=== PATIENT | male | born 1940 | race Caucasian/White ===

== ENCOUNTER → 2017-10-04 13:37 | Outpatient (REF) | payer MEDICARE, OTHER, SELFPAY | LOC: LAB 13:37 | PROVIDERS: Visit Provider Internal Medicine ==

== ENCOUNTER → 2017-10-18 08:05 | Outpatient (REF) | payer MEDICARE, OTHER, SELFPAY ==
[2017-10-18 09:11] LABS: Add Manual Diff / Slide Review NO; Basophils Percent Auto 0.6 % (0-2); Eosinophils Percent Auto 4.3 % (2-4); Hematocrit 30.1 % (41-53); Hemoglobin 10.4 g/dL (13.5-17.5); Lymphocytes Percent Auto 25.4 % (25-40); Mean Corpuscular HGB Conc 34.5 % (30-36); Mean Corpuscular Volume 92.7 fL (80-100); Monocytes Percent Auto 9.2 % (3-14); Neutrophils Absolute Auto 4000 /uL (3000-5900); Neutrophils Percent Auto 60.5 % (50-75); Platelet Count 200 X10^3/uL (150-400); Red Blood Cell Count 3.25 X10^6/uL (4.5-5.9); White Blood Cell Count 6.6 X10^3/uL (4.5-11.0)
== END ==
LOC: LAB 08:05
PROVIDERS: Visit Provider Psychiatry & Neurology Psychiatry
DX: G31.83 Neurocognitive disorder with Lewy bodies (principal); G20 Parkinson's disease
CPT/HCPCS: 36415; 85025

== ENCOUNTER → 2017-10-25 08:30 | Outpatient (REF) | payer MEDICARE, OTHER, SELFPAY ==
[2017-10-25 09:10] LABS: Add Manual Diff / Slide Review NO; Basophils Percent Auto 0.7 % (0-2); Eosinophils Percent Auto 3.3 % (2-4); Hematocrit 32.4 % (41-53); Lymphocytes Percent Auto 21.5 % (25-40); Mean Corpuscular HGB Conc 33.8 % (30-36); Mean Corpuscular Hemoglobin 31.3 PG (26-34); Mean Corpuscular Volume 92.5 fL (80-100); Monocytes Percent Auto 9.7 % (3-14); Neutrophils Absolute Auto 5200 /uL (3000-5900); Neutrophils Percent Auto 64.8 % (50-75); Platelet Count 221 X10^3/uL (150-400); Red Cell Distribution Width 13.1 % (11.6-14.8)
== END ==
LOC: LAB 08:30
PROVIDERS: Visit Provider Psychiatry & Neurology Psychiatry
DX: G31.83 Neurocognitive disorder with Lewy bodies (principal); F02.80 Dementia in other diseases classified elsewhere, unspecified severity, without behavioral disturbance, psychotic disturbance, mood disturbance, and anxiety; G20 Parkinson's disease
CPT/HCPCS: 36415; 85025

== ENCOUNTER → 2017-11-01 08:33 | Outpatient (REF) | payer MEDICARE, OTHER, SELFPAY ==
[2017-11-01 10:55] LABS: Add Manual Diff / Slide Review NO; Basophils Percent Auto 0.8 % (0-2); Eosinophils Percent Auto 4.2 % (2-4); Hemoglobin 11.7 g/dL (13.5-17.5); Lymphocytes Percent Auto 30.4 % (25-40); Mean Corpuscular HGB Conc 34.3 % (30-36); Mean Corpuscular Hemoglobin 31.7 PG (26-34); Mean Corpuscular Volume 92.4 fL (80-100); Monocytes Percent Auto 8.7 % (3-14); Neutrophils Absolute Auto 4000 /uL (3000-5900); Neutrophils Percent Auto 55.9 % (50-75); Platelet Count 219 X10^3/uL (150-400); Red Blood Cell Count 3.68 X10^6/uL (4.5-5.9); Red Cell Distribution Width 13.3 % (11.6-14.8); White Blood Cell Count 7.1 X10^3/uL (4.5-11.0)
== END ==
LOC: LAB 08:33
PROVIDERS: Visit Provider Psychiatry & Neurology Psychiatry
DX: G31.83 Neurocognitive disorder with Lewy bodies (principal); F02.80 Dementia in other diseases classified elsewhere, unspecified severity, without behavioral disturbance, psychotic disturbance, mood disturbance, and anxiety; G20 Parkinson's disease
CPT/HCPCS: 36415; 85025

== ENCOUNTER → 2017-11-08 07:44 | Outpatient (REF) | payer MEDICARE, OTHER, SELFPAY ==
[2017-11-08 08:43] LABS: Add Manual Diff / Slide Review NO; Basophils Percent Auto 0.7 % (0-2); Eosinophils Percent Auto 5.4 % (2-4); Hematocrit 29.8 % (41-53); Hemoglobin 10.1 g/dL (13.5-17.5); Lymphocytes Percent Auto 28.6 % (25-40); Mean Corpuscular HGB Conc 33.8 % (30-36); Mean Corpuscular Hemoglobin 31.2 PG (26-34); Mean Corpuscular Volume 92.2 fL (80-100); Monocytes Percent Auto 9.7 % (3-14); Neutrophils Absolute Auto 4100 /uL (3000-5900); Neutrophils Percent Auto 55.6 % (50-75); Platelet Count 194 X10^3/uL (150-400); Red Blood Cell Count 3.23 X10^6/uL (4.5-5.9); Red Cell Distribution Width 13.6 % (11.6-14.8); White Blood Cell Count 7.4 X10^3/uL (4.5-11.0)
== END ==
LOC: LAB 07:44
PROVIDERS: Visit Provider Psychiatry & Neurology Psychiatry
DX: G31.83 Neurocognitive disorder with Lewy bodies (principal); F02.80 Dementia in other diseases classified elsewhere, unspecified severity, without behavioral disturbance, psychotic disturbance, mood disturbance, and anxiety
CPT/HCPCS: 36415; 85025

== ENCOUNTER → 2017-11-22 09:10 | Outpatient (REF) | payer MEDICARE, OTHER, SELFPAY ==
[2017-11-22 09:20] LABS: Add Manual Diff / Slide Review NO; Basophils Percent Auto 0.6 % (0-2); Eosinophils Percent Auto 4.9 % (2-4); Hematocrit 31.8 % (36-46); Hemoglobin 10.9 g/dL (12.0-16.0); Lymphocytes Percent Auto 28.2 % (25-40); Mean Corpuscular HGB Conc 34.3 % (30-36); Mean Corpuscular Hemoglobin 31.3 PG (26-34); Mean Corpuscular Volume 91.2 fL (80-100); Monocytes Percent Auto 8.9 % (3-14); Neutrophils Absolute Auto 3900 /uL (3000-5900); Neutrophils Percent Auto 57.4 % (50-75); Platelet Count 193 X10^3/uL (150-400); Red Blood Cell Count 3.49 X10^6/uL (4.0-5.2); Red Cell Distribution Width 13.6 % (11.6-14.8); White Blood Cell Count 6.8 X10^3/uL (4.5-11.0)
== END ==
LOC: LAB 09:10
PROVIDERS: Visit Provider Psychiatry & Neurology Psychiatry
DX: G31.83 Neurocognitive disorder with Lewy bodies (principal); F02.80 Dementia in other diseases classified elsewhere, unspecified severity, without behavioral disturbance, psychotic disturbance, mood disturbance, and anxiety
CPT/HCPCS: 36415; 85025

== ENCOUNTER 2017-11-26 09:05 | Emergency (ER) | payer MEDICARE, OTHER, SELFPAY ==
--- NOTE | 2017-11-26 09:13 | ED.NEUROSD ---
HPI - Neuro Symptoms/Deficit General Chief Complaint: Neuro Symptoms/Deficit Stated Complaint: Possible Stroke Time Seen by Provider: 11/26/17 09:12 Source: family and EMS Mode of arrival: EMS Limitations: altered mental status History of Present Illness HPI Narrative: 77-year-old male arrived as a code stroke for concerns of altered mental status. It was reported that the patient has dementia and Lewy body dementia. Reported by EMS that the patient had breakfast this morning is normal but then [facility] the [facility] they found him after breakfast in his room on his knees and unresponsive. No other history was available. Related Data Home Medications Medication Instructions Recorded Confirmed allopurinol 300 mg PO QDAY #0 12/07/12 metformin [Glucophage] 1.5 dose PO BID #0 12/07/12 tamsulosin [Flomax] 0.4 mg PO QDAY #0 12/07/12 glipizide 5 mg PO QDAY #0 11/26/16 acetaminophen 650 mg PO Q6HP PRN #0 05/09/17 fluticasone [Flonase Allergy 1 spray INTRANASAL BID #0 05/09/17 Relief] hydroxyzine HCl 10 mg PO QIDP #0 05/09/17 lorazepam 0.5 mg PO QID PRN #0 06/18/17 psyllium husk [Metamucil] 1 cap TID #0 07/29/17 tamsulosin [Flomax] 0.8 mg PO QDAY #0 07/29/17 vitamin B complex [B 1 tab PO QDAY #0 07/29/17 Complex-Vitamin B12] vitamin E 400 unit PO QDAY #0 07/29/17 Previous Rx's Medication Instructions Recorded vitamin E 400 unit PO QDAY #30 cap 07/05/16 vitamin B complex [B 1 tab PO QDAY #30 tab 07/12/16 Complex-Vitamin B12] bupropion HCl [Wellbutrin XL] 150 mg PO QDAY #30 tab 01/27/17 oxycodone-acetaminophen [Percocet] 1 - 2 tab PO Q4HP PRN #12 tab 05/10/17 acetaminophen-codeine 1 tab PO Q8H PRN #15 tab 06/19/17 clozapine 12.5 mg disintegrating 12.5 mg PO HS #30 tab 10/17/17 tablet Allergies Allergy/AdvReac Type Severity Reaction Status Date / Time morphine [MORPHINE] Allergy Severe Unverified 09/13/17 12:54 hydrocodone [HYDROCODONE] Allergy Mild DIZZY/ROOM Unverified 09/13/17 12:54 SPINNING Review of Systems Review of Systems unobtainable due to mental status [facility] Comment: Reported history of dementia Exam Initial Vital Signs Initial Vital Signs: Vital Signs Temperature 97.7 F 11/26/17 09:26 Pulse Rate 55 L 11/26/17 09:26 Respiratory Rate 24 11/26/17 09:26 Blood Pressure 112/68 11/26/17 09:26 Pulse Oximetry 98 11/26/17 09:26 Const General: comfortable, well developed, well groomed and No acute distress Orientation: not alert, not awake and not oriented x3 HENMT Head: normal to inspection, normocephalic and atraumatic Eyes Other: Pupils 2 mm equal bilateral Patient resisted me opening is upper eyelids bilaterally Resp Effort & Inspection: normal respiratory effort Auscultation: clear to auscultation bilaterally Cardio Rate: regular rate Rhythm: regular rhythm Pulses: radial pulses present GI Inspection: non-distended Palpation: soft Skin Lesions: no lesions Neuro Other: Patient did not move his extremities upon command or spontaneously Did not follow any commands Did not open his eyes Did not withdrawal to stimulation or sternal rub Did resist me opening his bilateral upper eyelids Extrem General: normal to inspection MDM - Neuro Symptoms/Deficit Medical Records Attestation: I reviewed the patient's medical records. Lab Data Attestation: I reviewed the patient's lab results. Result diagrams: 11/26/17 09:20 11/26/17 09:20 Lab Results 11/26/17 11/26/17 11/26/17 Range/Units 09:20 09:20 09:20 WBC 6.8 (4.5-11.0) X10^3/uL RBC 3.27 L (4.5-5.9) X10^6/uL Hgb 10.3 L (13.5-17.5) g/dL Hct 30.1 L (41-53) % MCV 92.0 (80-100) fL MCH 31.6 (26-34) PG MCHC 34.3 (30-36) % RDW 13.8 (11.6-14.8) % Plt Count 178 (150-400) X10^3/uL Neut % (Auto) 61.6 (50-75) % Lymph % (Auto) 23.4 L (25-40) % [place]ardo % (Auto) 11.2 (3-14) % Eos % (Auto) 3.1 (2-4) % Baso % (Auto) 0.7 (0-2) % Neut # (Auto) 4200 (8027-7551) /uL PT 12.0 (10.1-12.7) SECONDS INR 1.1 (0.9-1.3) APTT 23 L (26.4-36.2) SECONDS Sodium (137-145) mmol/L Potassium (3.4-5.1) mmol/L Chloride (98-107) mmol/L Carbon Dioxide (22-32) mmol/L BUN (9-20) mg/dL Creatinine (0.66-1.25) mg/dL Estimated GFR (>60) mL/min BUN/Creatinine Ratio (6-22) Glucose (80-110) mg/dL Lactate (0.7-2.1) mmol/L Calcium (8.4-10.2) mg/dL Total Bilirubin (0.2-1.3) mg/dL AST (17-59) IU/L ALT (21-72) IU/L Alkaline Phosphatase (38-126) U/L Ammonia (9-30) umol/L Troponin I (0.01-0.034) ng/mL B-Natriuretic Peptide < 100.0 (<100) Total Protein (6.3-8.2) g/dL Albumin (3.5-5.0) g/dL Globulin (1.7-4.1) g/dL Albumin/Globulin Ratio (1.0-2.8) Lipase (23-300) U/L 11/26/17 11/26/17 11/26/17 Range/Units 09:20 09:40 09:40 WBC (4.5-11.0) X10^3/uL RBC (4.5-5.9) X10^6/uL Hgb (13.5-17.5) g/dL Hct (41-53) % MCV (80-100) fL MCH (26-34) PG MCHC (30-36) % RDW (11.6-14.8) % Plt Count (150-400) X10^3/uL Neut % (Auto) (50-75) % Lymph % (Auto) (25-40) % [place]ardo % (Auto) (3-14) % Eos % (Auto) (2-4) % Baso % (Auto) (0-2) % Neut # (Auto) (5796-1268) /uL PT (10.1-12.7) SECONDS INR (0.9-1.3) APTT (26.4-36.2) SECONDS Sodium 135 L (137-145) mmol/L Potassium 4.2 (3.4-5.1) mmol/L Chloride 100 (98-107) mmol/L Carbon Dioxide 26 (22-32) mmol/L BUN 26 H (9-20) mg/dL Creatinine 1.50 H (0.66-1.25) mg/dL Estimated GFR 45.5 L (>60) mL/min BUN/Creatinine Ratio 17.3 (6-22) Glucose 162 H (80-110) mg/dL Lactate 1.0 (0.7-2.1) mmol/L Calcium 8.9 (8.4-10.2) mg/dL Total Bilirubin 0.6 (0.2-1.3) mg/dL AST 14 L (17-59) IU/L ALT 23 (21-72) IU/L Alkaline Phosphatase 58 (38-126) U/L Ammonia < 9.0 L (9-30) umol/L Troponin I < 0.012 (0.01-0.034) ng/mL B-Natriuretic Peptide (<100) Total Protein 6.1 L (6.3-8.2) g/dL Albumin 3.4 L (3.5-5.0) g/dL Globulin 2.7 (1.7-4.1) g/dL Albumin/Globulin Ratio 1.3 (1.0-2.8) Lipase 100 (23-300) U/L Imaging Data CT scan - head: Radiologist's impression: PROCEDURE: CT HEAD/BRAIN WO CON INDICATIONS: Possible stroke TECHNIQUE: Noncontrast 4.5 mm thick angled axial sections acquired from the foramen magnum to the vertex, with coronal and sagittal reformats. For radiation dose reduction, the following was used: automated exposure control, adjustment of mA and/or kV according to patient size. COMPARISON: [facility], CT, CT ANGIO HEAD AND NECK, 11/26/2017, 8:56. [facility], CT, HEAD WITHOUT CONTRAST, 08/20/2017, 13:28. FINDINGS: Image quality: Excellent. CSF spaces: Basal cisterns are patent. No extra-axial fluid collections. The ventricles are symmetric in size and shape. Brain: No intracranial bleeds or masses. There is cerebral volume loss for age, with resultant ventricular and sulcal prominence. There are periventricular and deep white matter chronic small vessel ischemic changes. There is intracranial internal carotid artery atherosclerosis. Skull and face: Calvarium and visualized facial bones appear intact, without suspicious lesions. Sinuses: Visualized sinuses and mastoids are clear. IMPRESSION: 1. No acute intracranial abnormalities. 2. Cerebral volume loss and chronic microvascular ischemic changes. The result was discussed with Dr. Pelaez prior to dictation. Dictated by: Krista Sandoval M.D. on 11/26/2017 at 9:40 Approved by: Krista Sandoval M.D. on 11/26/2017 at 9:46 CTA head and neck: Radiologist's impression: PROCEDURE: CT ANGIO HEAD AND NECK INDICATIONS: Possible stroke TECHNIQUE: Pre-contrast 4.5 mm thick sections acquired from the foramen magnum to the vertex. After the administration of intravenous contrast, 1 mm thick sections acquired from the aortic arch through the [place] of Lr. Post-contrast 4.5 mm thick sections then re-acquired from the foramen magnum to the vertex. 3-dimensional cfnfzji-cyhbukjak-ugzfxqxmyc (MIP) and/or volume rendering reformats were acquired of the central intracranial vasculature and neck separately. COMPARISON: [facility], , STROKE PROTOCOL, 11/27/2016, 7:34. [facility], , STROKE PROTOCOL, 05/22/2014, 13:51. FINDINGS: Image quality: Excellent. BRAIN: CSF spaces: Ventricles are normal in size and shape. Basal cisterns are patent. No extra-axial fluid collections. Brain: No midline shift. No intracranial bleeds or masses. Díaz-white matter interface appears intact. Skull and face: Calvarium and facial bones appear intact, without suspicious lesions. Orbits appear normal. Sinuses: Sinuses and mastoids are clear. HEAD CT ANGIOGRAPHY: Anterior circulation: Intracranial internal carotid arteries are normal in size and flow. The flow within the paired anterior cerebral arteries is normal and symmetric. The flow within the middle cerebral arteries is normal and symmetric. The anterior communicating artery is seen. No aneurysms are seen. Posterior circulation: Visualized portions of the vertebral arteries demonstrate normal caliber, and join to form a normal appearing basilar artery. Flow within the posterior cerebral arteries is normal and symmetric. No aneurysms are seen. NECK CT ANGIOGRAPHY: Carotid system: The great vessels demonstrate a conventional anatomy as they arise from the aortic arch. The origins of the common carotid arteries appear patent. The common carotid arteries demonstrate normal caliber and courses. The bifurcation regions are both widely patent. The internal carotid arteries demonstrate normal calibers and courses. There is plzjgzmq-xd-jela-grade stenosis at the right subclavian artery origin. Posterior circulation: Dominant left vertebral artery. The origins of the vertebral arteries both appear widely patent. The more superior extracranial portions of both vertebral arteries also demonstrate normal courses and calibers. They join to form a normal appearing basilar artery. Soft tissues: Visualized neck soft tissues demonstrate no suspicious abnormalities. Small thyroid nodules present. There is a slightly enlarged right hilar lymph node measuring 1.5 cm. Bones: No suspicious bony lesions. Visualized cervical spine appears normally aligned. IMPRESSION: 1. No high-grade stenosis or occlusion in anterior or posterior circulations. 2. No high-grade stenosis or occlusion in cervical carotid arteries or vertebral arteries. 3. Kftqdivc-ik-mwnz-grade stenosis at the right subclavian artery origin. 4. Mildly enlarged right hilar lymph node. This finding is nonspecific and may be secondary to infectious, inflammatory or neoplastic etiology. Recommend clinical correlation and follow up. Any quantitative measurements of stenosis were performed using NASCET criteria. Dictated by: Krista Sandoval M.D. on 11/26/2017 at 9:51 Approved by: Krista Sandoval M.D. on 11/26/2017 at 10:00 ECG Data Attestation: I personally reviewed and interpreted this ECG as follows: Prior ECG tracings: not available for review Interpretation: Sinus bradycardia Ventricular rate of 59 Normal axis Normal intervals Normal QRS Normal QTC No ST T wave changes MDM Narrative Medical decision making narrative: Head CT shows no acute pathology CTA of the head neck shows no acute vascular compromise. I feel secondary to his physical exam that is CVA is unlikely. His pdfwjw-qg-xdk did eventually arrive here in the emergency department and the patient did respond to her. There was also. The time where the patient asked the nursing staff where he was. Upon my review evaluation patient did squeeze both of his hands equally to command did wiggle his toes equally. I had a long discussion with the patient is sister in all who told me that he has episodes like this where he becomes more ?unresponsive ?and then after approximately an hour to he improves. I was able to talk with his ex over the phone who was the power of developmental behavioral physician according to the patient's nnkoct-dv-zff who told me that his episode today is a common occurrence for him. Labs are unremarkable. Patient did seem to be returning to his baseline per his wmqqpv-dc-jvj all. Will hold off further workup for now. Patient was [facility] to the [facility] with return precautions given to nursing staff. Discharge Plan Departure Patient Disposition: Home, Self-Care Clinical Impression: Acute alteration in mental status, Dementia, Diabetes Discharge Date/Time: 11/26/17 10:43 Interventions: ED Discharge Assessment Last Done: 11/26/17 10:41 Instructions: How to Prevent Falls Activity Restrictions/Additional Instructions: Recommend continuing all medications as directed. Call the primary care doctor for a follow-up this week. Return to the emergency department for any new or worsening symptoms Prescriptions: No Action allopurinol 300 MG tablet 300 mg PO QDAY Qty: 0 RF: 0 metformin [Glucophage] 500 MG tablet 1.5 dose PO BID Qty: 0 RF: 0 tamsulosin [Flomax] 0.4 MG capsule,extended release 24hr 0.4 mg PO QDAY Qty: 0 RF: 0 vitamin E 400 UNIT capsule 400 unit PO QDAY Qty: 30 RF: 5 vitamin B complex [B Complex-Vitamin B12] 1 EACH tablet 1 tab PO QDAY Qty: 30 RF: 5 glipizide 5 MG tablet 5 mg PO QDAY Qty: 0 RF: 0 bupropion HCl [Wellbutrin XL] 150 MG tablet extended release 24 hr 150 mg PO QDAY Qty: 30 RF: 2 fluticasone [Flonase Allergy Relief] 9.9 ML spray,suspension 1 spray Intranasal BID Qty: 0 RF: 0 acetaminophen 325 MG tablet 650 mg PO Q6HP PRNQty: 0 RF: 0 hydroxyzine HCl 10 MG tablet 10 mg PO QIDP Qty: 0 RF: 0 oxycodone-acetaminophen [Percocet] 5 MG/325 MG tablet 1 - 2 tab PO Q4HP PRNQty: 12 RF: 0 lorazepam 0.5 MG tablet 0.5 mg PO QID PRNQty: 0 RF: 0 acetaminophen-codeine 30 MG/300 MG tablet 1 tab PO Q8H PRNQty: 15 RF: 0 psyllium husk [Metamucil] 0.52 GM capsule 1 cap TID Qty: 0 RF: 0 tamsulosin [Flomax] 0.4 MG capsule,extended release 24hr 0.8 mg PO QDAY Qty: 0 RF: 0 vitamin E 100 UNIT capsule 400 unit PO QDAY Qty: 0 RF: 0 vitamin B complex [B Complex-Vitamin B12] 1 EACH tablet 1 tab PO QDAY Qty: 0 RF: 0 clozapine 12.5 mg tablet,disintegrating 12.5 mg PO HS Qty: 30 RF: 3
[2017-11-26 09:26] VITALS: BP 112/68; PULSE 55; PULSE 63; RESP 12; RESP 24; TEMP 36.5; O2SAT 98
[2017-11-26 09:32] LABS: Add Manual Diff / Slide Review NO; Basophils Percent Auto 0.7 % (0-2); Eosinophils Percent Auto 3.1 % (2-4); Hematocrit 30.1 % (41-53); Hemoglobin 10.3 g/dL (13.5-17.5); Lymphocytes Percent Auto 23.4 % (25-40); Mean Corpuscular HGB Conc 34.3 % (30-36); Mean Corpuscular Hemoglobin 31.6 PG (26-34); Monocytes Percent Auto 11.2 % (3-14); Neutrophils Absolute Auto 4200 /uL (3000-5900); Neutrophils Percent Auto 61.6 % (50-75); Platelet Count 178 X10^3/uL (150-400); Red Blood Cell Count 3.27 X10^6/uL (4.5-5.9); Red Cell Distribution Width 13.8 % (11.6-14.8); White Blood Cell Count 6.8 X10^3/uL (4.5-11.0)
[2017-11-26 09:37] LABS: INR 1.1 (0.9-1.3)
[2017-11-26 09:39] LABS: PTT Partial Thromboplastin Tim 23 SECONDS (26.4-36.2)
[2017-11-26 09:40] LABS: Alanine Aminotransferase 23 IU/L (21-72); Albumin 3.4 g/dL (3.5-5.0); Albumin Globulin Ratio 1.3 (1.0-2.8); Alkaline Phosphatase 58 U/L (38-126); Aspartate Aminotransferase 14 IU/L (17-59); BUN Creatinine Ratio 17.3 (6-22); Bilirubin Total 0.6 mg/dL (0.2-1.3); Blood Urea Nitrogen 26 mg/dL (9-20); Calcium 8.9 mg/dL (8.4-10.2); Carbon Dioxide 26 mmol/L (22-32); Chloride 100 mmol/L (98-107); Estimated Glomerular Filt Rate 45.5 mL/min (>60); Globulin 2.7 g/dL (1.7-4.1); Glucose 162 mg/dL (80-110); HEMOLYSIS 18 (0-50); Lipase 100 U/L (23-300); Potassium 4.2 mmol/L (3.4-5.1); Sodium 135 mmol/L (137-145); Total Protein 6.1 g/dL (6.3-8.2)
[2017-11-26 09:48] LABS: B Type Natriuretic Peptide < 100.0 (<100)
[2017-11-26 09:54] LABS: Ammonia (NH3) < 9.0 umol/L (9-30)
[2017-11-26 09:56] LABS: Troponin I < 0.012 ng/mL (0.01-0.034)
[2017-11-26 10:04] VITALS: BP 110/64; PULSE 54; RESP 14; O2SAT 98
[2017-11-26 10:41] VITALS: BP 105/70; PULSE 53; RESP 14; O2SAT 99
--- NOTE | 2017-11-26 10:50 | PC.NURSE ---
Per DPOA, PT has done this (unresponsive episode) before. Requests we send pt back to SNF.
== END 2017-11-26 10:43 | disposition home or self-care (01) ==
LOC: ED 10:31
PROVIDERS: Emergency Provider Emergency Medicine
DX: R41.82 Altered mental status, unspecified (principal); F03.90 Unspecified dementia, unspecified severity, without behavioral disturbance, psychotic disturbance, mood disturbance, and anxiety; E11.9 Type 2 diabetes mellitus without complications
CPT/HCPCS: 36415; 70450; 70496; 70498; 80053; 82140; 82962; 83605; 83690; 83880; 84484; 85025; 85610; 85730; 93005; 93041; 99283; 99285; 99291; Q9967

== ENCOUNTER 2017-11-28 21:39 | Observation (INO) | payer MEDICARE, OTHER, SELFPAY ==
[2017-11-28 21:45] VITALS: BP 117/76; PULSE 58; RESP 13; TEMP 36.9; O2SAT 99; BMI 21.9
--- NOTE | 2017-11-28 21:48 | DI.CT.S_ITS ---
PROCEDURE: CT CERVICAL SPINE WO CON INDICATIONS: Fall with head injury. Poor historian regarding neck pain. TECHNIQUE: Noncontrast 3 mm thick sections acquired from the skull base to the T4 level. Sagittal and coronal reformats were then constructed. For radiation dose reduction, the following was used: automated exposure control, adjustment of mA and/or kV according to patient size. COMPARISON: [facility], CERVICAL SPINE 2 OR 3 VIEWS, 03/24/2009, 10:07. FINDINGS: Image quality: Excellent. Bones: No fractures or dislocations. There is severe degenerative disc disease at C5-C6 and moderate degenerative disc disease at C6-C7. Scattered mild bilateral facet arthropathy in cervical spine. Visualized superior ribs are intact. Soft tissues: Prevertebral soft tissues are normal in thickness. No paravertebral hematomas. No apical pneumothoraces. Surgical and is enlarged and demonstrates heterogeneous attenuation. Small polyp or mucosal retention cyst in the left maxillary sinus. IMPRESSION: 1. No fractures. 2. Degenerative changes noted in cervical spine. 3. Small polyp or mucus retention cyst in the left maxillary sinus. 4. Enlarged thyroid with heterogeneous attenuation. Please correlate with thyroid function tests. If clinically indicated, thyroid ultrasound may be obtained for followup. 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 Dictated by: Krista Sandoval M.D. on 11/29/2017 at 7:09 Approved by: Krista Sandoval M.D. on 11/29/2017 at 7:14
--- NOTE | 2017-11-28 21:48 | DI.CT.S_ITS ---
PROCEDURE: CT HEAD/BRAIN WO CON INDICATIONS: Fall. Occipital head injury. TECHNIQUE: Noncontrast 4.5 mm thick angled axial sections acquired from the foramen magnum to the vertex, with coronal and sagittal reformats. For radiation dose reduction, the following was used: automated exposure control, adjustment of mA and/or kV according to patient size. COMPARISON: [facility], CT, HEAD WITHOUT CONTRAST, 08/20/2017, 13:28. [facility], CT, CT HEAD/BRAIN WO CON, 11/26/2017, 8:56. FINDINGS: Image quality: Excellent. CSF spaces: Basal cisterns are patent. No extra-axial fluid collections. The ventricles are symmetric in size and shape. Brain: No intracranial bleeds or masses. There is cerebral volume loss for age, with resultant ventricular and sulcal prominence. There are periventricular and deep white matter chronic small vessel ischemic changes. There is intracranial internal carotid artery atherosclerosis. Skull and face: Calvarium and visualized facial bones appear intact, without suspicious lesions. Sinuses: Visualized sinuses and mastoids are clear. IMPRESSION: 1. No acute intracranial abnormalities. 2. Cerebral volume loss and chronic microvascular ischemic changes. 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 Dictated by: Krista Sandoval M.D. on 11/29/2017 at 7:07 Approved by: Krista Sandoval M.D. on 11/29/2017 at 7:08
--- NOTE | 2017-11-28 21:52 | ED_ITS ---
HPI - Fall General Chief Complaint: Fall Stated Complaint: GLF Time Seen by Provider: 11/28/17 21:48 Source: patient Mode of arrival: ambulatory Limitations: altered mental status History of Present Illness HPI Narrative: The patient was apparently approach in the door at his care center. He lost his balance, falling backwards. He struck his occipital scalp. He denies LOC. He arrives by EMS with head pain. The patient has Parkinson's, he has an unsteady gait. He is not a good historian, but he does tell me if he falls more than once per week. He has had multiple ER visits due to falls. When asking him about neck pain, I feel I never got a clear answer. He has generalized weakness in all extremities. He says he sometimes experiences weakness and dizziness is from standing. He has no chest pain associated with these episodes. He denies chest pain, palpitations, or dyspnea. He has no GI symptoms. Related Data Home Medications Medication Instructions Recorded Confirmed allopurinol 300 mg PO QDAY #0 12/07/12 11/29/17 metformin [Glucophage] 1.5 dose PO BID #0 12/07/12 11/29/17 glipizide 5 mg PO QDAY #0 11/26/16 11/29/17 acetaminophen 650 mg PO Q6HP PRN #0 05/09/17 11/29/17 fluticasone [Flonase Allergy 1 spray INTRANASAL BID #0 05/09/17 11/29/17 Relief] hydroxyzine HCl 10 mg PO QIDP #0 05/09/17 11/29/17 psyllium husk [Metamucil] 1 cap TID #0 07/29/17 11/29/17 tamsulosin [Flomax] 0.8 mg PO QDAY #0 07/29/17 11/29/17 bisacodyl [Biscolax] 10 mg TN DAILY PRN 11/29/17 11/29/17 donepezil 10 mg PO BEDTIME 11/29/17 11/29/17 lovastatin 40 mg PO QPM 11/29/17 11/29/17 methylsulfonylmethane [MSM] 1,000 mg PO BID 11/29/17 11/29/17 omeprazole 40 mg PO DAILY 11/29/17 11/29/17 oxycodone-acetaminophen [Percocet] 1 - 2 tab PO Q4HP PRN 11/29/17 11/29/17 polyethylene glycol 3350 17 g PO DAILY 11/29/17 11/29/17 Previous Rx's Medication Instructions Recorded vitamin E 400 unit PO QDAY #30 cap 07/05/16 vitamin B complex [B 1 tab PO QDAY #30 tab 07/12/16 Complex-Vitamin B12] bupropion HCl [Wellbutrin XL] 150 mg PO QDAY #30 tab 01/27/17 clozapine 12.5 mg disintegrating 12.5 mg PO HS #30 tab 10/17/17 tablet Allergies Allergy/AdvReac Type Severity Reaction Status Date / Time morphine [MORPHINE] Allergy Severe Difficulty Verified 11/29/17 02:46 Swallowing hydrocodone [HYDROCODONE] Allergy Mild DIZZY/ROOM Verified 11/29/17 02:46 SPINNING Review of Systems Constitutional Denies chills, Denies fever(s), Reports headache(s), Denies lethargy and Reports weakness Eyes Denies change in vision, Denies eye discharge, Denies irritation and Denies loss of vision ENT Ears, Nose, Mouth, and Throat: Reports dizziness and Reports headache(s) Cardiovascular Denies chest pain, Denies irregular heart rhythm, Denies lightheadedness, Denies palpitations, Denies dyspnea, Denies dyspnea on exertion and Denies orthopnea Respiratory Denies cough, Denies dyspnea, Denies dyspnea on exertion and Denies wheezing Gastrointestinal Gastrointestinal: Denies abdominal pain, Denies change in bowel habits, Denies diarrhea, Denies nausea and Denies vomiting Musculoskeletal Denies back pain, Denies muscle weakness, Denies numbness and Denies tingling Integumentary/Breasts Denies erythema and Denies rash Neurologic Reports dizziness, Reports headache(s), Denies loss of vision, Denies numbness, Denies tingling and Reports weakness Endocrine Denies palpitations Allergic/Immunologic Denies wheezing Exam Initial Vital Signs Initial Vital Signs: Vital Signs Temperature 98.4 F 11/28/17 21:45 Pulse Rate 58 L 11/28/17 21:45 Respiratory Rate 13 11/28/17 21:45 Blood Pressure 117/76 11/28/17 21:45 Pulse Oximetry 99 11/28/17 21:45 Const General: cooperative, well groomed and frail appearing Nutritional Appearance: well nourished Orientation: alert, awake, oriented x3 and not confused HENNY Head: other (Occipital tenderness without obvious injury or deformity.) Ears: TM's normal bilaterally Nose: external nose normal Face and sinus: normal facial exam, no crepitus and no ecchymosis Mouth: oral mucosae normal, lip normal and oropharynx normal Throat: posterior oropharynx normal Eyes Sclera: sclerae normal Pupils: PERRL EOM: EOM intact bilaterally Neck Neck: normal visual inspection and other (No palpable tenderness.) Chest Chest: normal inspection of the chest Resp Effort & Inspection: normal respiratory effort, able to speak in complete sentences and symmetric chest movement Cardio Rate: regular rate Rhythm: regular rhythm Heart Sounds: no click, no gallops, no murmurs and no rubs Pulses: normal peripheral pulses GI Inspection: non-distended Palpation: soft, no hepatosplenomegaly, No guarding, No pulsatile mass and No tender Auscultation: normal bowel sounds Back/Spine/Pelvis Back: No CVA tenderness Cervical Spine: cervical ROM normal and No pain with cervical ROM Thoracic/Lumbar Spine: thoracic and lumbar spine normal to inspection Skin General: no rashes or lesions noted, No jaundice and No petechiae Neuro General: alert, oriented x3, gait normal, no focal motor deficits and other ( Upper extremity tremor consistent with Parkinson's disease.) Speech: speech normal Extrem General: full ROM, no clubbing, cyanosis or edema, no pedal edema, no calf tenderness and other (Tremor is again noted.) [facility] Medical History Dementia (Acute) History of colon cancer (Acute) Depression (Acute) Gout (Acute) Hyperlipidemia (Acute) BPH (benign prostatic hyperplasia) (Acute) Diabetes (Acute) Hypertension (Acute) Parkinsons (Acute) Surgical History H/O hemicolectomy (Acute) Course Orders Ordered: ED Orders 11/28/17 21:48 CT cervical spine wo con Stat CT head/brain wo con Stat EKG-12 Lead Stat 11/28/17 22:22 Basic Metabolic Panel Stat Complete Blood Count AUTO DIFF Stat Prothrombin Time INR Stat Troponin with CK Cardiac Panel Stat Acetaminophen (Tylenol) 650 mg PO Q6HR PRN PRN Reason: As Needed for Fever/Mild Pain Sodium Chloride (Normal Saline 0.9%) 1,000 mls @ 1,000 mls/hr IV BOLUS PRN PRN Reason: Fluid replacement Last Infusion: 11/29/17 04:27 Dose: 1,000 mls/hr Admin: 11/29/17 00:45 Dose: 1,000 mls/hr Sodium Chloride (Normal Saline 0.9%) 1,000 mls @ 125 mls/hr IV CONT JOSEF Last Admin: 11/29/17 04:26 Dose: 125 mls/hr Vital Signs - 8 hr 11/28/17 21:45 11/28/17 22:21 11/28/17 23:19 Temperature 98.4 F 98.4 F Pulse Rate 58 L 58 L 62 Pulse Rate [Orthostatic Lying] Pulse Rate [Orthostatic Sitting] Pulse Rate [Orthostatic Standing] Respiratory Rate 13 13 14 Blood Pressure 117/76 117/76 Blood Pressure [Left Arm] 100/61 Blood Pressure [Orthostatic Lying] Blood Pressure [Orthostatic Sitting] Blood Pressure [Orthostatic Standing] Pulse Oximetry 99 99 100 11/29/17 00:37 11/29/17 02:18 11/29/17 03:08 Temperature Pulse Rate 58 L Pulse Rate [Orthostatic Lying] 53 L 63 Pulse Rate [Orthostatic Sitting] 62 56 L Pulse Rate [Orthostatic Standing] 63 63 Respiratory Rate 59 H Blood Pressure Blood Pressure [Left Arm] 120/67 Blood Pressure [Orthostatic Lying] 113/68 95/72 Blood Pressure [Orthostatic Sitting] 118/75 116/62 Blood Pressure [Orthostatic Standing] 79/56 L 127/79 H Pulse Oximetry 11/29/17 03:44 11/29/17 04:05 Temperature 97.9 F Pulse Rate 76 54 L Pulse Rate [Orthostatic Lying] Pulse Rate [Orthostatic Sitting] Pulse Rate [Orthostatic Standing] Respiratory Rate 18 18 Blood Pressure 128/70 H 117/61 Blood Pressure [Left Arm] Blood Pressure [Orthostatic Lying] Blood Pressure [Orthostatic Sitting] Blood Pressure [Orthostatic Standing] Pulse Oximetry 99 98 MDM - Fall Lab Data Attestation: I reviewed the patient's lab results. Result diagrams: 11/28/17 22:22 11/28/17 22:22 Lab Results 06/26/18 06/26/18 06/26/18 Range/Units 22:22 22:22 22:22 WBC 6.6 (4.5-11.0) X10^3/uL RBC 3.47 L (4.5-5.9) X10^6/uL Hgb 10.9 L (13.5-17.5) g/dL Hct 31.9 L (41-53) % MCV 91.8 (80-100) fL MCH 31.3 (26-34) PG MCHC 34.1 (30-36) % RDW 13.5 (11.6-14.8) % Plt Count 209 (150-400) X10^3/uL Neut % (Auto) 61.4 (50-75) % Lymph % (Auto) 22.3 L (25-40) % [place] % (Auto) 10.3 (3-14) % Eos % (Auto) 5.2 H (2-4) % Baso % (Auto) 0.8 (0-2) % Neut # (Auto) 4000 (4542-4928) /uL PT 12.5 (10.1-12.7) SECONDS INR 1.2 (0.9-1.3) Sodium 140 (137-145) mmol/L Potassium 4.5 (3.4-5.1) mmol/L Chloride 101 (98-107) mmol/L Carbon Dioxide 27 (22-32) mmol/L BUN 21 H (9-20) mg/dL Creatinine 1.40 H (0.66-1.25) mg/dL Estimated GFR 49.3 L (>60) mL/min BUN/Creatinine Ratio 15.0 (6-22) Glucose 130 H (80-110) mg/dL Calcium 9.5 (8.4-10.2) mg/dL Total Creatine Kinase 36 L (55-170) U/L Troponin I < 0.012 (0.01-0.034) ng/mL Imaging Data CT scan - head: Radiologist's impression: No acute cranial injury. CT C-spine: Radiologist's impression: No acute injury identified. MDM Narrative Medical decision making narrative: The patient was evaluated for head neck trauma after the fall. Head CT and neck CT show no acute traumatic injury. He told me in the interview process that he occasionally feels weak and dizzy when standing. Posturals were performed after the head and neck CT were evaluated. He had a 30 point drop in his systolic blood pressure when standing, and was symptomatic of dizziness. He was hydrated 1 L of normal saline, he still has a 30 point decrease in his blood pressure with standing. IV fluids have been continued. Dr. Manzano has been contacted, the patient will be admitted. Discharge Plan Departure Patient Disposition: Admitted as Observation Clinical Impression: Orthostatic hypotension, Contusion of occipital region of scalp Discharge Date/Time: 11/29/17 03:25 Interventions: ED Discharge Assessment Last Done: 11/29/17 03:48 Admit Date/Time: 11/29/17 03:12 Admit Provider: Parisa Manzano
[2017-11-28 22:21] VITALS: BP 117/76; PULSE 58; RESP 13; TEMP 36.9; O2SAT 99; BMI 21.9
[2017-11-28 22:31] LABS: Add Manual Diff / Slide Review NO; Basophils Percent Auto 0.8 % (0-2); Eosinophils Percent Auto 5.2 % (2-4); Hematocrit 31.9 % (41-53); Hemoglobin 10.9 g/dL (13.5-17.5); Lymphocytes Percent Auto 22.3 % (25-40); Mean Corpuscular HGB Conc 34.1 % (30-36); Mean Corpuscular Hemoglobin 31.3 PG (26-34); Mean Corpuscular Volume 91.8 fL (80-100); Monocytes Percent Auto 10.3 % (3-14); Neutrophils Absolute Auto 4000 /uL (3000-5900); Neutrophils Percent Auto 61.4 % (50-75); Platelet Count 209 X10^3/uL (150-400); Red Blood Cell Count 3.47 X10^6/uL (4.5-5.9); Red Cell Distribution Width 13.5 % (11.6-14.8); White Blood Cell Count 6.6 X10^3/uL (4.5-11.0)
[2017-11-28 22:37] LABS: INR 1.2 (0.9-1.3); Prothrombin Time 12.5 SECONDS (10.1-12.7)
[2017-11-28 22:41] LABS: Blood Urea Nitrogen 21 mg/dL (9-20); Calcium 9.5 mg/dL (8.4-10.2); Carbon Dioxide 27 mmol/L (22-32); Chloride 101 mmol/L (98-107); Creatine Kinase 36 U/L (55-170); Estimated Glomerular Filt Rate 49.3 mL/min (>60); Glucose 130 mg/dL (80-110); HEMOLYSIS < 15 (0-50); Potassium 4.5 mmol/L (3.4-5.1); Sodium 140 mmol/L (137-145)
[2017-11-28 22:54] LABS: Troponin I < 0.012 ng/mL (0.01-0.034)
[2017-11-28 23:19] VITALS: BP 100/61; PULSE 62; RESP 14; O2SAT 100
[2017-11-29] VITALS (9 sets, daily range): BP systolic 79–145; BP diastolic 56–108; PULSE 53–76; RESP 14–59; TEMP 36.4–36.6; O2SAT 96–99; BMI 21.9
[2017-11-29] MEDS: SODIUM CHLORIDE 0.9% 1,000 ML 1000 ML IV (00:45)
--- NOTE | 2017-11-29 02:30 | PC.NURSE ---
WHEN HE STOOD WITH WALKER WITH ASSIST HE BECAME DIZZY AND STATED HE WAS GOING TO FALL.HIS SYSTOLIC B/P DEROPPED 30 POINTS FOR LYING.NO HR CHANGES.
[2017-11-29] MEDS: SODIUM CHLORIDE 0.9% 1,000 ML 125 ML IV (04:26)
--- NOTE | 2017-11-29 05:05 | PC.NURSE ---
Admitted to room 222. unable to orient to his room. Pt. very confused & dis-oriented, calling out for Pricila. States I'm in my house by the [employer] How come there's a police man walking around outside. Refused to take off his clothes & put the gown. Bed alarm activated, requested to get up OOB to void. Takes 2 PA with FFW & a gait belt. Gait impaired & noted tremors to all extremities. Admission assessment incomplete pt. very poor historian. Will report to day RN.
[2017-11-29] MEDS: METFORMIN HCL 500 MG TABLET 750 MG PO (09:31)
[2017-11-29] MEDS: ALLOPURINOL 300 MG TABLET PO (09:31)
[2017-11-29] MEDS: glipiZIDE 5 MG TABLET PO (09:32)
[2017-11-29] MEDS: buPROPion XL 150 MG TAB PO (09:32)
[2017-11-29] MEDS: TAMSULOSIN 0.4 MG CAPSULE 0.8 MG PO (09:33)
[2017-11-29] MEDS: SODIUM CHLORIDE 0.45% 1,000 ML 125 ML IV (09:35)
--- NOTE | 2017-11-29 10:05 | PC.NURSE ---
Addendum entered by Kylah Crystal R.N. 11/29/17 13:40: DC - reviewed dc instructions with his sister in law, paperwork gathered and given to [facility] staff person, dressed in his clothing, has shoes in bag, tsf to and taken back to [facility]. Original Note: Addendum entered by Kylah Crystal R.N. 11/29/17 12:14: NERUO - while family is here, pt seated in chair and enc po with her assistance ,pt remains confused and cannot answer any questions, rambles regarding past events. Original Note: Addendum entered by Kylah Crystal R.N. 11/29/17 11:00: ADM - poa states she was not notified by ER of pt admission to hospital, why is he here, discussed orthostatic bps earlier, stable now after ivf, she states staff just brought him over to er a few days ago and assumed if he was brought in that he would go right back. Bridgett in and spoke Jimmy, lupillo Travis contacted Dr.Rieger aisha foley and he will be over midday. Original Note: AM NOTE - awake, attempting oob, oriented to self only, sentences are rambling and unrelated to questions, hr irreg 60, later am orthostatic bp, lying 145/78, sittinh 134/75 and standing 142/95, hr remained irreg 55-62, placed pt in chair w/alarm, quickly set off and then up with staff standby 'I've got to go, ambul out into hallway and becomes increasingly belligerent when trying to return to room, combine mechanic x2 remained at side while pt ambul hallway, when is POA Jimmy arrived, we were able to return to chair, initially refusing all meds, crushed in applesauce and jimmy was able to have him take bites, the iv was hep locked as pt was twisting and turning when moving around in room and hallway,takes shuffling steps initially, then was stable in room.
--- NOTE | 2017-11-29 10:08 | PT.IIE ---
Surgical History (Last Updated 11/29/17 @ 05:19 by Juliano Jansen MD) H/O hemicolectomy (Acute) Medical History (Last Updated 11/29/17 @ 05:18 by Juliano Jansen MD) Dementia (Acute) History of colon cancer (Acute) Depression (Acute) Gout (Acute) Hyperlipidemia (Acute) BPH (benign prostatic hyperplasia) (Acute) Diabetes (Acute) Hypertension (Acute) Parkinsons (Acute) Physical Therapy Screening: Physical Therapy order received. Chart reviewed. Observed pt ambulating in the halls with nursing. He is confused and agitated. Pt needs supervision during mobility due to his cognitive and safety impairments. His gait pattern is steady without a device at this time. He is at increased fall risk due to his cognitive impairments. No skilled physical therapy needs identified at this time. No eval charge this visit.
--- NOTE | 2017-11-29 10:36 | CM.DANOTE ---
Addendum entered by Bridgett Fisher LPN 11/29/17 11:20: Checked in again with pt, Veronica and Pricila after discussion with Lelia/[facility] DNS. Pt is ok to return today per Lelia. Their staff can follow up with BP etc. Clinical info is faxed to her for her review. Marianne at [facility] will coordinate the w/c transfer of pt today at 1330. Will followup when receive final orders from Dr. Jones. Original Note: DCP: assessment: case received and spoke with RN zenaida Travis. She reports that pt is wandering about the halls and she is calling Dr. Jones to see about a d/c back to his dementia care unit: [facility]. Met then with pt and his POA Pricila. DCP template completed with info currently available. Conferred also with PT and RN Kylah. Angy now reports that Dr. Jones will be here during his noon hour to d/c pt back to him home environment. Will be following.
--- NOTE | 2017-11-29 12:46 | PM.DS.1 ---
History of Present Illness Date Patient Seen: 11/29/17 Time Patient Seen: 12:46 Chief complaint: orthostatic hypotention/ contusion of occipital re Narrative: Patient is a patient of Dr. Hunt with history of Parkinson's and severe dementia who is a very very poor historian. No other members were here were individuals and history was obtained from chart and nurse. Apparently patient was is in his usual state of health which sister in law feels he never drinks enough fluids. Apparently he has had a history of multiple falls and was in the doorway of his room and fell backwards hitting his head. Unclear what brought the decision to come to the emergency room but was brought to the emergency room. CT scan and workup of neck were negative. What they found was that he is profoundly hypo tensive on ambulation. Unable to even stand him up due to the drop in his systolic blood pressure. He secondary to that he was brought in for observation. Patient currently is complaining of no pain other than his left shoulder. Does not feel like it is very big deal. Discharge Providers Date of admission: 11/29/17 03:12 Consults: 11/29/17 08:44 Consult to Physical Therapy Evaluate & Treat Comment: Physician Instructions: Evaluate and Treat 11/29/17 10:41 Consult to Physical Therapy Evaluate & Treat Comment: Physician Instructions: Evaluate and Treat Discharge provider: Juliano Jones MD Summary Discharge Diagnosis: Orthostatic hypotension Fall Left shoulder pain Severe dementia Parkinson's disease. Hospital Course: Orthostatic hypotension. Patient was admitted to the hospital after evaluation and the fact that he could not stand up. He was given fluid hydration and orthostatics in the morning were completely normal. He had no significant issue was getting up moving around without any dizziness. Seems to be ambulating well without any other significant problem and was considered safe to be discharged home. Etiology was probably dehydration. Apparently does not drink a lot of fluids. Recommendation for more aggressive fluid maintenance Fall. Really has no significant issue. Sounds as if he probably was dehydrated. No evidence of significant neurologic or other abnormality. MRI was normal. Certainly exam today is normal. Will follow. Left shoulder pain. Only complaint today. Patient has a little bit of tenderness posteriorly no bruising no swelling and completely normal range of motion of his shoulder. Do not feel this needs to be worked up further should resolve. Severe dementia. Patient was completely disconnected from situation did know where he was was anxious and aggressive. Clearly this is the biggest issue. In stage and will have no definitive treatment. Refer back to his assisted living. Parkinson's disease. Appears to be stable. As per Dr. Hunt. Status at Discharge Functional status at discharge: independent ambulation Overall status at discharge: patient is back to baseline Time Spent with Patient Greater than 30 minutes Exam Vital Signs (past 8 hours): - 11/29/17 08:00 11/29/17 09:27 11/29/17 09:51 Temperature 97.5 F L Pulse Rate 55 L Pulse Rate [Orthostatic Lying] 55 L Pulse Rate [Orthostatic Sitting] 58 L Pulse Rate [Orthostatic Standing] 62 Respiratory Rate 14 Blood Pressure 140/108 H Blood Pressure [Orthostatic Lying] 145/78 H Blood Pressure [Orthostatic Sitting] 134/75 H Blood Pressure [Orthostatic Standing] 142/95 H Pulse Oximetry 99 96 11/29/17 12:00 Temperature 97.9 F Pulse Rate 54 L Pulse Rate [Orthostatic Lying] Pulse Rate [Orthostatic Sitting] Pulse Rate [Orthostatic Standing] Respiratory Rate 14 Blood Pressure 117/67 Blood Pressure [Orthostatic Lying] Blood Pressure [Orthostatic Sitting] Blood Pressure [Orthostatic Standing] Pulse Oximetry 97 Oxygen Delivery Method Room Air Narrative Exam Narrative: Alert elderly male in no acute distress lying in bed. HEENT exam I can elicit no tenderness. I do not feel any bruising or see any bruising definitively. Posterior scalp. Pupils are equal response to light. No oral lesions. Neck is supple without adenopathy for range of motion nontender. Lungs are clear. Heart regular rate and rhythm. Chest wall appears normal. Abdomen is soft positive bowel sounds nontender. Extremities left shoulder shows some tenderness posteriorly but no swelling erythema and completely normal range of motion. Neurologic exam shows a completely confused individual moving all extremities appropriately. Objective Labs Result Diagrams: 11/28/17 22:22 11/28/17 22:22 Labs: Laboratory Results - last 24 hr 11/28/17 11/28/17 11/28/17 22:22 22:22 22:22 WBC 6.6 RBC 3.47 L Hgb 10.9 L Hct 31.9 L MCV 91.8 MCH 31.3 MCHC 34.1 RDW 13.5 Plt Count 209 Neut % (Auto) 61.4 Lymph % (Auto) 22.3 L [place] % (Auto) 10.3 Eos % (Auto) 5.2 H Baso % (Auto) 0.8 Neut # (Auto) 4000 PT 12.5 INR 1.2 Sodium 140 Potassium 4.5 Chloride 101 Carbon Dioxide 27 BUN 21 H Creatinine 1.40 H Estimated GFR 49.3 L BUN/Creatinine Ratio 15.0 Glucose 130 H Calcium 9.5 Total Creatine Kinase 36 L Troponin I < 0.012 Discharge Plan Discharge Plan Patient Disposition: Assisted Living Transfer to: [facility] Other facility: [facility] Under care of provider: Dr. Hunt Transportation: Wheelchair Discharge comment: please attempt to have patient drink water every 1-2 hours. Return to usual care usual medicines The receiving facility has agreed to accept transfer and provide medical treatment.: Yes Discharge Med Rec/Prescriptions Discharge Orders: Discharge (Order); Ordered 11/29/17 Ordered By: Juliano Jones Discharge Health Status Brief summary of current health status: see discharge summary Precautions: [place] Provider Discharge Instructions Diet: Diet as Tolerated Liquid consistency: Normal/Thin Food texture: Regular [facility] Restrictions to mobility: needs to be watched closely due to dementia and fall risk Discharge Data Attending Provider: Parisa Manzano Admit Date/Time: 11/29/17 03:12 Discharge Interventions Interventions: Discharge assessment Last Done: 11/29/17 11:19 Quality VTE Deep Vein Thrombosis/Pulmonary Embolism Present on Admission: No
== END 2017-11-29 13:40 ==
LOC: ED 11-29 03:03 → AC 11-29 03:13
PROVIDERS: Admitting Provider Family Medicine; Emergency Provider Emergency Medicine; Visit Provider Family Medicine
DX: I95.1 Orthostatic hypotension (principal); W18.30XA Fall on same level, unspecified, initial encounter; S00.03XA Contusion of scalp, initial encounter; G20 Parkinson's disease; Z91.81 History of falling; R53.1 Weakness; E11.9 Type 2 diabetes mellitus without complications; I10 Essential (primary) hypertension; E78.5 Hyperlipidemia, unspecified; N40.0 Benign prostatic hyperplasia without lower urinary tract symptoms; M10.9 Gout, unspecified
CPT/HCPCS: 36415; 70450; 72125; 80048; 82550; 82553; 82962; 84484; 85025; 85610; 93005; 99283; 99285; G0378; J1650; J7050

== ENCOUNTER 2017-12-01 13:28 | Emergency (ER) | payer MEDICARE, OTHER, SELFPAY ==
[2017-11-29 03:40] VITALS: BMI 21.9
--- NOTE | 2017-12-01 13:51 | DI.RAD.S_ITS ---
PROCEDURE: XR KNEE LT 3V INDICATIONS: left knee pain TECHNIQUE: 3 views of the knee were acquired. COMPARISON: [facility], , KNEE 3V RIGHT, 12/12/2008, 10:16. FINDINGS: Bones: No fractures or dislocations. No suspicious bony lesions. There is chondrocalcinosis projecting in the medial lateral compartments. Minimal narrowing of the medial joint space Soft tissues: No joint effusion. Prominent prepatellar soft tissue swelling.. IMPRESSION: Left knee chondrocalcinosis. Minimal left knee joint degeneration. Prominent prepatellar soft tissue swelling raising the possibility of bursitis. Recommend clinical correlation. Dictated by: Mayo Rabago M.D. on 12/01/2017 at 14:10 Approved by: Mayo Rabago M.D. on 12/01/2017 at 14:17
--- NOTE | 2017-12-01 16:01 | ED.EXTPRO ---
HPI - Extremity Problem <Juana Lucero PA-C - Last Filed: 12/01/17 22:56> General Chief complaint: Extremity Problem,Nontraumatic Stated complaint: fluid on lft knee Time Seen by Provider: 12/01/17 16:01 Source: patient Mode of arrival: ambulatory Limitations: no limitations History of Present Illness HPI Narrative: This 77-year-old male is brought over today due to swelling in his left knee. Caregivers at his dementia facility just noticed this in the morning. They do not know of any trauma such as a fall. They state that patient was complaining of pain earlier today but currently he denies any pain or difficulty moving the leg. He thinks that he noticed the swelling in bed last night but caregiver states he is not reliable with history. He has not had any fever, has been eating and behaving normally today. Related Data Home Medications Medication Instructions Recorded Confirmed allopurinol 300 mg PO QDAY #0 12/07/12 12/01/17 metformin [Glucophage] 1.5 dose PO BID #0 12/07/12 12/01/17 glipizide 5 mg PO QDAY #0 11/26/16 12/01/17 acetaminophen 650 mg PO Q6HP PRN #0 05/09/17 12/01/17 fluticasone [Flonase Allergy 1 spray INTRANASAL BID #0 05/09/17 12/01/17 Relief] hydroxyzine HCl 10 mg PO QID PRN #0 05/09/17 12/01/17 tamsulosin [Flomax] 0.8 mg PO QDAY #0 07/29/17 12/01/17 bisacodyl [Biscolax] 10 mg [place] DAILY PRN 11/29/17 12/01/17 donepezil 10 mg PO BEDTIME 11/29/17 12/01/17 lovastatin 40 mg PO QPM 11/29/17 12/01/17 methylsulfonylmethane [MSM] 1,000 mg PO DAILY 11/29/17 12/01/17 omeprazole 40 mg PO DAILY 11/29/17 12/01/17 oxycodone-acetaminophen [Percocet] 1 - 2 tab PO Q4-6H PRN 11/29/17 12/01/17 polyethylene glycol 3350 17 g PO DAILY 11/29/17 12/01/17 Complete Enema 1 ea [place] PRN PRN 12/01/17 12/01/17 atenolol 50 mg PO DAILY 12/01/17 12/01/17 psyllium husk [Reguloid (psyllium 1 cap PO TID 12/01/17 12/01/17 husk)] Previous Rx's Medication Instructions Recorded vitamin E 400 unit PO QDAY #30 cap 07/05/16 vitamin B complex [B 1 tab PO QDAY #30 tab 07/12/16 Complex-Vitamin B12] bupropion HCl [Wellbutrin XL] 150 mg PO QDAY #30 tab 01/27/17 clozapine 12.5 mg disintegrating 12.5 mg PO HS #30 tab 10/17/17 tablet Allergies Allergy/AdvReac Type Severity Reaction Status Date / Time morphine [MORPHINE] Allergy Severe Difficulty Verified 12/04/17 16:13 Swallowing hydrocodone [HYDROCODONE] Allergy Mild DIZZY/ROOM Verified 12/04/17 16:13 SPINNING Review of Systems <Juana Lucero PA-C - Last Filed: 12/01/17 22:56> Review of Systems unobtainable due to mental status Exam <Juana Lucero PA-C - Last Filed: 12/01/17 22:56> Narrative Exam Narrative: GENERAL APPEARANCE: Patient sitting comfortably, in no distress. LUNGS: Clear to auscultation bilaterally. HEART: Rate and rhythm regular without murmur, normal S1 and S2, no S3 or S4. EXTREMITIES: No cyanosis, no edema or calf tenderness MUSCULOSKELETAL: Left knee moderate prepatellar effusion. Patella is palpable inferior to this. There is no tenderness to palpation. He has full a ROM of the knee. DERMATOLOGIC: Left patellar skin is cool to touch without any erythema or tenderness. There is a 1 cm very superficial pink nummular abrasion with barely denuded skin in the inferior lateral corner of the patella, no ecchymoses Initial Vital Signs Initial Vital Signs: Vital Signs Pulse Rate 52 L 12/01/17 16:44 Respiratory Rate 20 12/01/17 16:44 Blood Pressure 108/60 12/01/17 16:44 Pulse Oximetry 99 12/01/17 16:44 <Rosa Islea Obrien DO - Last Filed: 12/05/17 08:50> Initial Vital Signs Initial Vital Signs: Vital Signs Pulse Rate 52 L 12/01/17 16:44 Respiratory Rate 20 12/01/17 16:44 Blood Pressure 108/60 12/01/17 16:44 Pulse Oximetry 99 12/01/17 16:44 Course <Juana Lucero PA-C - Last Filed: 12/01/17 22:56> Orders Ordered: ED Orders 12/01/17 13:51 XR knee LT 3V Stat Vital Signs - 8 hr 12/01/17 16:44 Pulse Rate 52 L Respiratory Rate 20 Blood Pressure 108/60 Pulse Oximetry 99 <Rosa Isela Obrien DO - Last Filed: 12/05/17 08:50> Orders Ordered: ED Orders 12/01/17 13:51 XR knee LT 3V Stat Vital Signs - 8 hr 12/01/17 16:44 Pulse Rate 52 L Respiratory Rate 20 Blood Pressure 108/60 Pulse Oximetry 99 MDM - Extremity (Nontraumatic) <Juana Lucero PA-C - Last Filed: 12/01/17 22:56> Imaging Data knee: Radiologist's impression: View Report History Print [address] [address] XRay Report Signed Patient: Kit Stafford MR#: [id number] : 1940 Acct:[id number] Age/Sex: 77 / M Date of Service: 12/01/17 Loc: ED Accession Number: [id number] Procedure: XR knee LT 3V Ordering Provider: Juana Lucero P.A-C PROCEDURE: XR KNEE LT 3V INDICATIONS: left knee pain TECHNIQUE: 3 views of the knee were acquired. COMPARISON: [facility], , KNEE 3V RIGHT, 12/12/2008, 10:16. FINDINGS: Bones: No fractures or dislocations. No suspicious bony lesions. There is chondrocalcinosis projecting in the medial lateral compartments. Minimal narrowing of the medial joint space Soft tissues: No joint effusion. Prominent prepatellar soft tissue swelling.. IMPRESSION: Left knee chondrocalcinosis. Minimal left knee joint degeneration. Prominent prepatellar soft tissue swelling raising the possibility of bursitis. Recommend clinical correlation. Dictated by: Mayo Rabago M.D. on 12/01/2017 at 14:10 Approved by: Mayo Rabago M.D. on 12/01/2017 at 14:17 Discharge Plan Departure Patient Disposition: Home, Self-Care Clinical Impression: Bursitis Discharge Date/Time: 12/01/17 16:44 Interventions: ED Discharge Assessment Last Done: 12/01/17 16:44 Instructions: DI for Bursitis Activity Restrictions/Additional Instructions: Keep the compression wrap on for comfort and protection. It is not clear whether this swelling is related to trauma and the fall Gerardo had last week, but there does not appear to be any fracture or acute problem on the x-rays. This does not look typical of gout. Please use Tylenol as needed for pain. Return as we talked about if any acutely worsening symptoms such as redness or fever. Otherwise, please follow up with PCP next week if not improving Prescriptions: No Action allopurinol 300 MG tablet 300 mg PO QDAY Qty: 0 RF: 0 metformin [Glucophage] 500 MG tablet 1.5 dose PO BID Qty: 0 RF: 0 vitamin E 400 UNIT capsule 400 unit PO QDAY Qty: 30 RF: 5 vitamin B complex [B Complex-Vitamin B12] 1 EACH tablet 1 tab PO QDAY Qty: 30 RF: 5 glipizide 5 MG tablet 5 mg PO QDAY Qty: 0 RF: 0 bupropion HCl [Wellbutrin XL] 150 MG tablet extended release 24 hr 150 mg PO QDAY Qty: 30 RF: 2 fluticasone [Flonase Allergy Relief] 9.9 ML spray,suspension 1 spray Intranasal BID Qty: 0 RF: 0 acetaminophen 325 MG tablet 650 mg PO Q6HP PRN (Reason: Pain (Scale Score 1-3)) Qty: 0 RF: 0 hydroxyzine HCl 10 MG tablet 10 mg PO QID PRN (Reason: as directed) Qty: 0 RF: 0 tamsulosin [Flomax] 0.4 MG capsule,extended release 24hr 0.8 mg PO QDAY Qty: 0 RF: 0 clozapine 12.5 mg tablet,disintegrating 12.5 mg PO HS Qty: 30 RF: 3 polyethylene glycol 3350 17 gram Powder In Packet 17 g PO DAILY RF: 0 donepezil 10 mg Tablet 10 mg PO BEDTIME RF: 0 lovastatin 40 mg Tablet 40 mg PO QPM RF: 0 omeprazole 40 mg Capsule,Delayed Release(Dr/Ec) 40 mg PO DAILY RF: 0 methylsulfonylmethane [MSM] 1,000 mg Tablet 1,000 mg PO DAILY RF: 0 oxycodone-acetaminophen [Percocet] 5 MG/325 MG tablet 1 - 2 tab PO Q4-6H PRN (Reason: Back Pain) RF: 0 bisacodyl [Biscolax] 10 mg Suppository 10 mg [place] DAILY PRN (Reason: Constipation) RF: 0 atenolol 50 mg tablet 50 mg PO DAILY RF: 0 psyllium husk [Reguloid (psyllium husk)] 0.4 gram Capsule 1 cap PO TID RF: 0 Complete Enema 1 ea [place] PRN PRN (Reason: as directed) RF: 0 Referrals: Raghu Hunt MD [Physician] - <Rosa Isela Obrien DO - Last Filed: 12/05/17 08:50> Cosign ED Attending [place] Attestation: I was immediately available in the department for consultation. Documentation has been reviewed. I agree with assessment and plan.
[2017-12-01 16:44] VITALS: BP 108/60; PULSE 52; RESP 20; O2SAT 99
== END 2017-12-01 16:44 | disposition home or self-care (01) ==
PROVIDERS: Emergency Provider Internal Medicine
DX: M71.9 Bursopathy, unspecified (principal)
CPT/HCPCS: 73562; 99282; 99283

== ENCOUNTER → 2017-12-04 08:38 | Outpatient (REF) | payer MEDICARE, OTHER, SELFPAY ==
[2017-11-29 03:40] VITALS: BMI 21.9
[2017-12-04 09:33] LABS: Add Manual Diff / Slide Review NO; Basophils Percent Auto 0.6 % (0-2); Eosinophils Percent Auto 5.1 % (2-4); Hematocrit 30.8 % (41-53); Hemoglobin 10.5 g/dL (13.5-17.5); Lymphocytes Percent Auto 23.6 % (25-40); Mean Corpuscular Hemoglobin 31.1 PG (26-34); Mean Corpuscular Volume 91.4 fL (80-100); Monocytes Percent Auto 9.1 % (3-14); Neutrophils Absolute Auto 4000 /uL (3000-5900); Neutrophils Percent Auto 61.6 % (50-75); Platelet Count 233 X10^3/uL (150-400); Red Blood Cell Count 3.37 X10^6/uL (4.5-5.9); Red Cell Distribution Width 13.9 % (11.6-14.8); White Blood Cell Count 6.5 X10^3/uL (4.5-11.0)
== END ==
LOC: LAB 08:38
PROVIDERS: Visit Provider Psychiatry & Neurology Psychiatry
DX: G31.83 Neurocognitive disorder with Lewy bodies (principal); F02.80 Dementia in other diseases classified elsewhere, unspecified severity, without behavioral disturbance, psychotic disturbance, mood disturbance, and anxiety; G20 Parkinson's disease
CPT/HCPCS: 36415; 85025

== ENCOUNTER → 2017-12-20 08:11 | Outpatient (REF) | payer OTHER, MEDICARE, SELFPAY ==
[2017-11-29 03:40] VITALS: BMI 21.9
[2017-12-20 09:23] LABS: Add Manual Diff / Slide Review NO; Basophils Percent Auto 0.7 % (0-2); Eosinophils Percent Auto 3.9 % (2-4); Hemoglobin 10.8 g/dL (13.5-17.5); Lymphocytes Percent Auto 23.6 % (25-40); Mean Corpuscular HGB Conc 33.6 % (30-36); Mean Corpuscular Hemoglobin 30.7 PG (26-34); Mean Corpuscular Volume 91.4 fL (80-100); Monocytes Percent Auto 9.7 % (3-14); Neutrophils Absolute Auto 4700 /uL (3000-5900); Neutrophils Percent Auto 62.1 % (50-75); Platelet Count 232 X10^3/uL (150-400); Red Cell Distribution Width 14.1 % (11.6-14.8); White Blood Cell Count 7.6 X10^3/uL (4.5-11.0)
== END ==
LOC: LAB 08:11
PROVIDERS: Visit Provider Psychiatry & Neurology Psychiatry
DX: G20 Parkinson's disease (principal); Z79.899 Other long term (current) drug therapy
CPT/HCPCS: 36415; 85025

== ENCOUNTER → 2017-12-26 16:07 | Outpatient (REF) | payer OTHER, MEDICARE, SELFPAY ==
[2017-11-29 03:40] VITALS: BMI 21.9
[2017-12-26 17:16] LABS: Mean Corpuscular HGB Conc 33.4 % (30-36); Mean Corpuscular Volume 92.8 fL (80-100); Platelet Count 261 X10^3/uL (150-400); Red Blood Cell Count 3.56 X10^6/uL (4.5-5.9); Red Cell Distribution Width 14.4 % (11.6-14.8); White Blood Cell Count 6.6 X10^3/uL (4.5-11.0)
== END ==
LOC: LAB 16:07
PROVIDERS: Visit Provider Family Medicine
DX: G20 Parkinson's disease (principal)
CPT/HCPCS: 85027